=== PATIENT | male | born 1965 | race Two or more races ===

== ENCOUNTER 2016-08-30 15:43 | Inpatient (IN) | payer OTHER ==
[~2016-08-30] VITALS: Ht 182.9 cm; Wt 75.5 kg
[2016-08-30] MEDS ORDERED: NITROGLYCERIN PACKET 1 GM PACKET TD ONE (16:00)
[2016-08-30] MEDS ORDERED: ASPIRIN 325 MG TABLET ONE (16:07)
[2016-08-30] MEDS ORDERED: NITROGLYCERIN PACKET 1 GM PACKET ONE (16:07)
[2016-08-30 16:09] LABS: BASOPHILS # (AUTO) 0.1 /CMM (0.0-0.2); BASOPHILS % (AUTO) 0.9 % (0.0-2.0); EOSINOPHILS # (AUTO) 0.2 /CMM (0.0-0.7); EOSINOPHILS % (AUTO) 2.2 % (0.0-6.0); HEMATOCRIT 42 % (39-51); HEMOGLOBIN 14.2 g/dL (13.5-17.5); LYMPHOCYTES # (AUTO) 3.1 /CMM (0.8-4.8); LYMPHOCYTES % (AUTO) 31.4 % (20.0-44.0); MEAN CORPUSCULAR HEMOGLOBIN 31 PG (26.0-33.0); MEAN CORPUSCULAR HGB CONC 34 g/dl (31.0-36.0); MEAN CORPUSCULAR VOLUME 90 fL (80-96); MONOCYTES # (AUTO) 0.6 /CMM (0.1-1.30); MONOCYTES % (AUTO) 5.7 % (2.0-12.0); NEUTROPHILS # (AUTO) 5.9 /CMM (1.8-8.9); NEUTROPHILS % (AUTO) 59.8 % (43.0-81.0); PLATELET COUNT (AUTO) 217 /CMM (150-450); RDW COEFFICIENT OF VARIATION 13.3 (11.5-15.0); RED BLOOD CELL COUNT(AUTO) 4.59 MIL/uL (4.5-6.0); WHITE BLOOD COUNT (AUTO) 9.8 K/uL (4.3-11.0)
[2016-08-30] MEDS ORDERED: ASPIRIN EC 81 MG TABLET.DR PO ONE (16:10)
[2016-08-30] MEDS: ASPIRIN 325 MG TABLET PO ONE ×2 (16:20→16:27)
[2016-08-30 16:27] LABS: CALCIUM, SERUM 8.9 mg/dL (8.5-10.1); CARBON DIOXIDE 31 mmol/L (21-32); CHLORIDE 104 mmol/L (98-107); GLUCOSE 110 mg/dL (74-106); SODIUM SERUM 142 mmol/L (136-145); UREA NITROGEN, BLOOD 14 mg/dL (7-18)
[2016-08-30 16:28] LABS: INR 1.03 (0.87-1.13)
[2016-08-30 16:39] LABS: TROPONIN I < 0.017 ng/mL (0.00-0.056)
[2016-08-30] MEDS ORDERED: ATEN25TA PO (16:41)
[2016-08-30] MEDS ORDERED: ESCI10TA PO (16:41)
[2016-08-30] MEDS ORDERED: ASPI81TA2 PO (16:41)
[2016-08-30] MEDS ORDERED: HYDR-548 PO (16:41)
[2016-08-30] MEDS ORDERED: LOVA20TA2 PO (16:41)
[2016-08-30] MEDS ORDERED: LISI2.5T2 PO (16:41)
[2016-08-30 18:00] VITALS: BP 102/61
[2016-08-30] MEDS ORDERED: ONDANSETRON HCL/PF 4 MG/2 ML VIAL IVP PRN (18:00)
[2016-08-30] MEDS: ESCITALOPRAM OXALATE (10 MG) 10 MG TABLET PO SCH (18:00)
[2016-08-30] MEDS ORDERED: ASPIRIN 81 MG TAB.CHEW PO ONE (18:00)
[2016-08-30] MEDS ORDERED: ZOLPIDEM TARTRATE 5 MG TABLET PO PRN (18:00)
[2016-08-30] MEDS ORDERED: NITROGLYCERIN 0.4 MG/TAB BOTTLE SL PRN (18:00)
[2016-08-30] MEDS: ASPIRIN 81 MG TAB.CHEW PO SCH (18:00)
[2016-08-30] MEDS: ATENOLOL 25 MG TABLET PO SCH (18:00)
[2016-08-30] MEDS ORDERED: HYDROCODONE/APAP 10/325MG 1 EA TABLET PO PRN (18:00)
[2016-08-30 18:15] VITALS: BP 102/61
[2016-08-30] MEDS: LISINOPRIL (5MG) 5 MG TABLET PO SCH (18:30)
[2016-08-30] MEDS: MORPHINE SULFATE INJ 4 MG/ML DISP.SYRIN IV PRN ×2 (19:14→20:34)
[2016-08-30 20:00] VITALS: BP 111/61
[2016-08-31] VITALS: BP 105/55
[2016-08-31 04:00] VITALS: BP 107/66
[2016-08-31 06:42] LABS: BASOPHILS # (AUTO) 0.1 /CMM (0.0-0.2); BASOPHILS % (AUTO) 1.2 % (0.0-2.0); EOSINOPHILS # (AUTO) 0.3 /CMM (0.0-0.7); EOSINOPHILS % (AUTO) 3.1 % (0.0-6.0); HEMATOCRIT 43 % (39-51); HEMOGLOBIN 14.8 g/dL (13.5-17.5); LYMPHOCYTES # (AUTO) 3.7 /CMM (0.8-4.8); LYMPHOCYTES % (AUTO) 35.4 % (20.0-44.0); MEAN CORPUSCULAR HEMOGLOBIN 31 PG (26.0-33.0); MEAN CORPUSCULAR HGB CONC 35 g/dl (31.0-36.0); MEAN CORPUSCULAR VOLUME 90 fL (80-96); MONOCYTES # (AUTO) 0.7 /CMM (0.1-1.30); MONOCYTES % (AUTO) 6.2 % (2.0-12.0); NEUTROPHILS # (AUTO) 5.7 /CMM (1.8-8.9); NEUTROPHILS % (AUTO) 54.1 % (43.0-81.0); PLATELET COUNT (AUTO) 180 /CMM (150-450); RED BLOOD CELL COUNT(AUTO) 4.72 MIL/uL (4.5-6.0); WHITE BLOOD COUNT (AUTO) 10.4 K/uL (4.3-11.0)
[2016-08-31 07:08] LABS: CALCIUM, SERUM 8.6 mg/dL (8.5-10.1); CREATININE 0.9 mg/dL (0.6-1.3); POTASSIUM 3.9 mmol/L (3.5-5.1)
[2016-08-31 08:00] VITALS: BP 107/66
[2016-08-31 08:15] VITALS: BP 107/63
[2016-08-31] MEDS: ESCITALOPRAM OXALATE (10 MG) 10 MG TABLET PO SCH (08:15)
[2016-08-31] MEDS: ATENOLOL 25 MG TABLET PO SCH (08:15)
[2016-08-31] MEDS: LISINOPRIL (5MG) 5 MG TABLET PO SCH (08:15)
[2016-08-31] MEDS: ASPIRIN 81 MG TAB.CHEW PO SCH (08:15)
[2016-08-31 09:22] LABS: CHOLESTEROL 158 mg/dL (<200); HDL CHOLESTEROL 34 mg/dL (40-60); LDL 103 mg/dL (0-99); TRIGLYCERIDES 158 mg/dL (30-150)
[2016-08-31 09:31] LABS: TROPONIN I < 0.017 ng/mL (0.00-0.056)
[2016-08-31 09:33] LABS: ALBUMIN 3.6 g/dL (3.4-5.0); BILIRUBIN,TOTAL 0.6 mg/dL (0.2-1.0); TOTAL PROTEIN, SERUM 6.7 g/dL (6.4-8.2)
[2016-08-31] MEDS ORDERED: ATORVASTATIN 10 MG TABLET PO SCH (22:00)
== END 2016-08-31 10:30 | disposition home or self-care (01) | DRG 198 ==
LOC: ER 15:45 → TELE1 17:57 → MEDSG1 08-31 10:04
PROVIDERS: ADMIT Internal Medicine; ATTEND Internal Medicine
DX: I25.110 Atherosclerotic heart disease of native coronary artery with unstable angina pectoris (principal); I10 Essential (primary) hypertension; E78.5 Hyperlipidemia, unspecified; F17.210 Nicotine dependence, cigarettes, uncomplicated; Z95.1 Presence of aortocoronary bypass graft
CPT/HCPCS: 36415; 71010-TC; 80048-TC; 80061-TC; 80076-TC; 84484-TC; 85025-TC; 85652-TC; 85730-TC; 87081-TC; A4606; J2270; Z7610

== ENCOUNTER 2017-02-15 22:34 | Inpatient (IN) | payer OTHER ==
[~2017-02-15] VITALS: Ht 182.9 cm; Wt 77.1 kg
[~2017-02-15 22:34] MED LIST: ASPI-1169 PO; ATEN25TA PO; ESCI10TA PO; HYDR-548 PO; LISI2.5T2 PO; LOVA20TA2 PO
--- NOTE | 2017-02-15 22:40 | NUR ---
TO BED 5 A 51 YO MALE PATIENT BB RA 39 FROM HOME; CHEST PAIN X 1HR. PATIENT IS AAOX4, NAD NOTED. VSS. NONDIAPHORETIC. COMPLAINING OF CHEST PAIN AT 5-6/10 AT THIS TIME. NITRO X3 GIVEN BY EMS. PLACED PATIENT ON CARDIAC AND VS MONITORING. COMFORT MEASURES RENDERED.
--- NOTE | 2017-02-15 22:48 | NUR ---
XR AT BEDSIDE.
[2017-02-15] MEDS ORDERED: MORPHINE SULFATE INJ 2 MG/ML DISP.SYRIN IV ONE (23:00)
[2017-02-15] MEDS ORDERED: MORPHINE SULFATE INJ 4 MG/ML DISP.SYRIN ONE (23:04)
[2017-02-15 23:15] LABS: BASOPHILS # (AUTO) 0.1 /CMM (0.0-0.2); BASOPHILS % (AUTO) 1.2 % (0.0-2.0); EOSINOPHILS # (AUTO) 0.2 /CMM (0.0-0.7); EOSINOPHILS % (AUTO) 2.5 % (0.0-6.0); HEMATOCRIT 39 % (39-51); HEMOGLOBIN 13.1 g/dL (13.5-17.5); LYMPHOCYTES # (AUTO) 2.3 /CMM (0.8-4.8); MEAN CORPUSCULAR HEMOGLOBIN 31 PG (26.0-33.0); MEAN CORPUSCULAR HGB CONC 34 g/dl (31.0-36.0); MEAN CORPUSCULAR VOLUME 90 fL (80-96); MONOCYTES # (AUTO) 0.5 /CMM (0.1-1.30); MONOCYTES % (AUTO) 6.3 % (2.0-12.0); NEUTROPHILS # (AUTO) 4.7 /CMM (1.8-8.9); PLATELET COUNT (AUTO) 231 /CMM (150-450); RDW COEFFICIENT OF VARIATION 13.5 (11.5-15.0); RED BLOOD CELL COUNT(AUTO) 4.31 MIL/uL (4.5-6.0); WHITE BLOOD COUNT (AUTO) 7.8 K/uL (4.3-11.0)
[2017-02-15 23:29] LABS: CALCIUM, SERUM 9.2 mg/dL (8.5-10.1); CARBON DIOXIDE 33 mmol/L (21-32); CHLORIDE 104 mmol/L (98-107); GLUCOSE 113 mg/dL (74-106); POTASSIUM 3.9 mmol/L (3.5-5.1); SODIUM SERUM 141 mmol/L (136-145); UREA NITROGEN, BLOOD 9 mg/dL (7-18)
--- NOTE | 2017-02-15 23:29 | NUR ---
REPORT GIVEN TO JAREK RODRIGUEZ FOR ADMISSION AND SAVANNAH.
[2017-02-15 23:31] LABS: INR 1.06 (0.87-1.13)
[2017-02-15 23:38] LABS: TROPONIN I < 0.017 ng/mL (0.00-0.056)
[2017-02-16] MEDS ORDERED: NITROGLYCERIN 0.4 MG/TAB BOTTLE SL PRN ×2
[2017-02-16] MEDS ORDERED: ONDANSETRON HCL/PF 4 MG/2 ML VIAL IVP PRN
[2017-02-16] MEDS ORDERED: ENOXAPARIN SODIUM 40 MG/0.4 ML DISP.SYRIN SQ SCH
[2017-02-16] MEDS ORDERED: ZOLPIDEM TARTRATE 5 MG TABLET PO PRN
[2017-02-16] MEDS ORDERED: ACETAMINOPHEN 325 MG TABLET PO PRN
[2017-02-16] MEDS ORDERED: HYDROCODONE/APAP 5/325MG 1 EACH TABLET PO PRN
[2017-02-16] MEDS ORDERED: Z GUARD REMEDY 2 OZ OINT TP PRN
[2017-02-16] MEDS ORDERED: NITROGLYCERIN 0.4 MG/TAB BOTTLE ONE (00:07)
--- NOTE | 2017-02-16 00:30 | NUR ---
AFTER NITRO 0.4MG SL X3, PATIENT REPORTS THAT THE PAIN IS STILL 3/10. RECEIVED ORDERS FROM DR LOUIS TO GIVEN MORPHINE 4MG IVP NOW.
[2017-02-16] MEDS ORDERED: MORPHINE SULFATE INJ 4 MG/ML DISP.SYRIN ONE (00:32)
--- NOTE | 2017-02-16 00:47 | NUR ---
AFTER MORPHINE 4MG IVP, PER PATIENT CHEST PAIN IS DOWN TO 1/10.
[2017-02-16] MEDS ORDERED: MORPHINE SULFATE INJ 2 MG/ML DISP.SYRIN IV PRN (01:00)
--- NOTE | 2017-02-16 01:22 | NUR ---
TRANSFERRED PATIENT TO TELE BED VIA ALS PROTCOL, NO INCIDENTN NOTED.
--- NOTE | 2017-02-16 01:28 | NUR ---
TANK CAR REPAIRER NOTES RECEIVED PT VIA FOSTER TRANSFERRED FROM ED, ALERT AND ORIENTED X 4, ABLE TO VERBALIZE NEEDS, ABLE TO AMBULATE SAFELY TO RESTROOM. NOTED WITH NO SOB, BREATHING EVEN AND UNLABORED, WILL BE UNDER TELE WITH SR @ 64 BPM. ORIENTED PATIENT TO UNIT, ROOM MATE, CALL LIGHT, USE OF CALL LIGHT AND PT VERBALIZED UNDERSTANDING. EXPLAINED ADMISSION PROCESS TO PT, INVENTORY DONE, SKIN CHECK DONE BUT PT REFUSED TO PERFORM SKIN CHECK ON PRIVATE PARTS, RESPECTED PT'S DECISION. SKIN INTACT. ALL PATIENT'S NEEDS ATTENDED TO. PLACED CALL LIGHT WITHIN EASY REACH. WILL CONTINUE TO MONITOR.
[2017-02-16 01:30] VITALS: BP 108/64
[2017-02-16] MEDS ORDERED: ENOXAPARIN SODIUM 40 MG/0.4 ML DISP.SYRIN SQ ONE (02:01)
[2017-02-16 04:00] VITALS: BP 95/58
[2017-02-16] MEDS: MORPHINE SULFATE INJ 2 MG/ML DISP.SYRIN IV PRN ×4 (05:03→20:04)
--- NOTE | 2017-02-16 05:03 | NUR ---
RN NOTES MORPHINE 2MG IV PRN GIVEN FOR CHEST PAIN 09/29. OFFERED NITRO TO PATIENT BUT PER PATIENT, HE PREFERS MORPHINE. RESPECTED PATIENT'S DECISION. WILL CONTINUE TO MONITOR.
[2017-02-16 07:20] LABS: BASOPHILS # (AUTO) 0.1 /CMM (0.0-0.2); EOSINOPHILS # (AUTO) 0.2 /CMM (0.0-0.7); EOSINOPHILS % (AUTO) 2.3 % (0.0-6.0); HEMATOCRIT 39 % (39-51); HEMOGLOBIN 13.3 g/dL (13.5-17.5); LYMPHOCYTES # (AUTO) 2.9 /CMM (0.8-4.8); LYMPHOCYTES % (AUTO) 34.8 % (20.0-44.0); MEAN CORPUSCULAR HEMOGLOBIN 31 PG (26.0-33.0); MEAN CORPUSCULAR HGB CONC 34 g/dl (31.0-36.0); MEAN CORPUSCULAR VOLUME 90 fL (80-96); MONOCYTES # (AUTO) 0.5 /CMM (0.1-1.30); MONOCYTES % (AUTO) 6.1 % (2.0-12.0); NEUTROPHILS # (AUTO) 4.6 /CMM (1.8-8.9); NEUTROPHILS % (AUTO) 55.8 % (43.0-81.0); PLATELET COUNT (AUTO) 204 /CMM (150-450); RDW COEFFICIENT OF VARIATION 13.4 (11.5-15.0); RED BLOOD CELL COUNT(AUTO) 4.29 MIL/uL (4.5-6.0); WHITE BLOOD COUNT (AUTO) 8.3 K/uL (4.3-11.0)
--- NOTE | 2017-02-16 07:25 | NUR ---
RN NOTES PT UNDER TELE WITH SR @ 64-68 BPM.
--- NOTE | 2017-02-16 07:25 | NUR ---
RN CLOSING NOTES PATIENT IN BED, ASLEEP BUT EASILY AROUSABLE, ALERT AND ORIENTED X 3, VERBALLY RESPONSIVE, NO SOB NOTED, BREATHING EVEN AND UNLABORED, CONTINUES TO HAVE SL ON RAC G20, PATENT AND INTACT. PT IN NO ACUTE DISTRESS, NO C/O PAIN AT THIS TIME. PLACED CALL LIGHT WITHIN EASY REACH. ALL PATIENT'S NEEDS ATTENDED TO. WILL ENDORSE TO AM NURSE FOR CONTINUITY OF CARE.
[2017-02-16 07:29] LABS: CALCIUM, SERUM 8.9 mg/dL (8.5-10.1); PHOSPHORUS 3.8 mg/dL (2.5-4.9); POTASSIUM 3.8 mmol/L (3.5-5.1)
[2017-02-16 08:00] VITALS: BP 95/58
--- NOTE | 2017-02-16 08:01 | NUR ---
BOILERMAKER OPENING NOTES PT RECEIVED A&0X3. TELE SR 64-68. PT TOLERATING ROOM AIR WITH NO SOB. PT REPORTING NO PAIN AT THIS TIME. PT WITH IVC AT R AC G#20 INTACT AND SALINE FLUSH PATENT. BED IN LOWEST LOCKED POSITION WITH HANDRAILSX2 AND CALL CEBALLOS WITHIN REACH. PT BRIEFED ON TODAY'S POC, PT IS WITHOUT CONCERN OR COMPLAINT AT THIS TIME.
--- NOTE | 2017-02-16 08:38 | NUR ---
BUSINESS OPERATIONS ANALYST NOTES. MD KELLER REQUESTING AM BP MEDICATIONS HELD IF SYSTOLIC <100, PROCESS DEVELOPMENT ENGINEER SUPPLIED BP 95/58 HR 61. MANUAL BP 98/55 TELE HR 60. MEDICATIONS HELD PER .
[2017-02-16] MEDS: ASPIRIN 81 MG TAB.CHEW PO SCH (08:42)
[2017-02-16] MEDS: ATORVASTATIN 40 MG TABLET PO SCH (08:42)
[2017-02-16] MEDS: ESCITALOPRAM OXALATE (10 MG) 10 MG TABLET PO SCH (08:42)
[2017-02-16] MEDS: LISINOPRIL (5MG) 5 MG TABLET PO SCH (08:43)
[2017-02-16] MEDS: CLOPIDOGREL BISULFATE 75 MG TABLET PO SCH (08:43)
[2017-02-16] MEDS: ATENOLOL 25 MG TABLET PO SCH (08:43)
[2017-02-16] MEDS ORDERED: LOVASTATIN (NON FORMULARY) 20 MG TABLET PO SCH (09:00)
--- NOTE | 2017-02-16 09:57 | NUR ---
RATOPRINTER NOTES. PT REQUESTING ANALGESIA, BP RE ASSESSED, 126/61, HR 68.
[2017-02-16 10:02] VITALS: BP 126/61
--- NOTE | 2017-02-16 10:45 | NUR ---
MS RODRIGUEZ NOTES. CHAYO D/C PER Addendum: 02/16/17 at 1846 by HELENA EVANS RN CHAYO Kaba/Terell. WRONG PT CHARTING
[2017-02-16] MEDS: MAGNESIUM HYDROXIDE 30 ML UDC PO PRN (14:43)
[2017-02-16 16:00] VITALS: BP 97/66
--- NOTE | 2017-02-16 18:46 | NUR ---
DIRECTOR PROCESS IMPROVEMENT CLOSING NOTES PT A&0X3 RESTING OOB IN CHAIR. TELE: SR 62. PT TOLERATING ROOM AIR WITH NO SOB. PT REPORTING NO PAIN AT THIS TIME. PT WITH IVC G#20 AT R AC INTACT AND SALINE LOCKED. BED IN LOWEST LOCKED POSITION WITH HANDRAILSX3 AND CALL CEBALLOS WITHIN REACH. ALL DAY DAY NURSE DUTIES ATTENDED TO, PT IS WITHOUT CONCERN OR COMPLAINT AT THIS TIME. WILL ENDORSE TO NIGHT NURSE.
--- NOTE | 2017-02-16 19:30 | NUR ---
TELERN FULLY AWAKE, PATIENT CONCERNED ABOUT POSS HEART CATH, AT [facility]. WILL NEED TO FOLLOW UP WITH AND [facility].
[2017-02-16 20:00] VITALS: BP 105/61
--- NOTE | 2017-02-16 20:08 | NUR ---
TELERN VERBALIZES CP RATE OF 6/10 [facility] NONRADIATING PATIENT STATED. MORPHINE 2MG IVP ADMINISTERED ORDERED. SAFETY PRECAUTIONS EMPHASIZED, CALL LIGHT USE REVIEWED WITH PATIENT WELL UNDERSTOOD. WILL CALL IF NEEDED PER PATIENT. CLOSELY WATCHED. SR ON THE MONITOR.
[2017-02-17] VITALS: BP 107/69
[2017-02-17] MEDS: MORPHINE SULFATE INJ 2 MG/ML DISP.SYRIN IV PRN ×4 (00:09→12:39)
--- NOTE | 2017-02-17 00:15 | NUR ---
telern awakened with chest discomforts, morphine 2mg ivp administered as ordered. spoke to hs of [facility] regarding poss heart cath, no bed available. will follow up in am. patient informed.
[2017-02-17 04:00] VITALS: BP 110/66
--- NOTE | 2017-02-17 04:15 | NUR ---
TELERN MORPHINE 2 MG ADMINISTERED FOR MID CP NONRADIATING. STILL PENDING BED AVAILABILITY AT [facility].
--- NOTE | 2017-02-17 07:59 | NUR ---
ULTRASONIC TESTER OPENING NOTES PT A&0X3 RESTING IN BED USING IPAD. PT TOLERATING ROOM AIR WITH NO SO. PT REPORTING NO PAIN. PT WITH IVC G#20 ATR AC INTACT AND SALINE FLUSH PATENT. BED IN LOWEST LOCKED POSITION WITH HANDRAILSX2 AND CALL CEBALLOS WITHIN REACH. PT BRIEFED ON TODAY'S POC AND IS WITHOUT CONCERN OR COMPLAINT AT THIS TIME.
[2017-02-17 08:00] VITALS: BP 110/69
--- NOTE | 2017-02-17 08:04 | NUR ---
MS RN NOTES. D/C TELE PER .
[2017-02-17] MEDS: CLOPIDOGREL BISULFATE 75 MG TABLET PO SCH (08:28)
[2017-02-17] MEDS: MAGNESIUM HYDROXIDE 30 ML UDC PO PRN (08:28)
[2017-02-17] MEDS: ESCITALOPRAM OXALATE (10 MG) 10 MG TABLET PO SCH (08:28)
[2017-02-17] MEDS: ASPIRIN 81 MG TAB.CHEW PO SCH (08:28)
[2017-02-17] MEDS: ATORVASTATIN 40 MG TABLET PO SCH (08:28)
[2017-02-17] MEDS: LISINOPRIL (5MG) 5 MG TABLET PO SCH (08:30)
[2017-02-17 08:31] VITALS: BP 110/69
[2017-02-17] MEDS: ATENOLOL 25 MG TABLET PO SCH (08:31)
--- NOTE | 2017-02-17 14:00 | NUR ---
MS RN CLOSING NOTES. PT LEAVING AMA. PT DECIDING TO LEAVE AMA AND REPRESENT TO ANOTHER HOSPITAL'S ER TO EXPEDITE PLACEMENT . PT IS A&0X3. PT EXPLAINED BENEFITS AND RISKSX3 AND HAS SPOKE TO CASE MANAGEMENT. PT TOLERATING ROOM AIR WITH NO SOB. PT REPORTING ADEQUATE PAIN MANAGEMENT AND CURRENTLY NO PAIN, NO PAIN RADIATION, N&V OR DIAPHORESIS. NO S/S OF DISTRESS OR DISCOMFORT. PT IVC REMOVED, NAD AT SITE. PT WITH ALL BELONGINGS AND DOCUMENT SIGNED. AMA DOCUMENT SIGNED. EDUCATION AND D/C PACKET PROVIDED. PT WITH FOR TRANSPORT. PT GRATEFUL FOR CARE AND IS WITHOUT CONCERN OR COMPLAINT.
== END 2017-02-17 14:26 | disposition left against medical advice (07) | DRG 198 ==
LOC: ER 22:35 → TELE 23:38 → MED 02-17 08:09
PROVIDERS: ADMIT Nurse Practitioner Acute Care; ATTEND Nurse Practitioner Acute Care
DX: I25.10 Atherosclerotic heart disease of native coronary artery without angina pectoris (principal); I10 Essential (primary) hypertension; I25.2 Old myocardial infarction; E78.5 Hyperlipidemia, unspecified; F17.210 Nicotine dependence, cigarettes, uncomplicated; Z88.0 Allergy status to penicillin; D63.8 Anemia in other chronic diseases classified elsewhere; Z95.5 Presence of coronary angioplasty implant and graft; Z95.1 Presence of aortocoronary bypass graft; R73.9 Hyperglycemia, unspecified
CPT/HCPCS: 36415; 71010-TC; 80048-TC; 80061-TC; 83735-TC; 84100-TC; 84484-TC; 85025-TC; 85730-TC; 87081-TC; 93307-TC; A4606; J1650; J2270; Z7610